=== PATIENT | male | born 1945 | race Caucasian/White ===

== ENCOUNTER → 2019-11-07 | Outpatient (CLI) | payer MEDICARE, BC ==
[~2019-11-07] MED LIST: CITA10TA4 PO; CITA20TA6 PO; FINA5TAB4 PO; FLUT16SP24 NAS; FLUT1DIS IH; LEVA15HF4 INH; LEVO125T5 PO; MIRT30TA4 PO; REGADENOSON 0.4 MG/5 ML SYRINGE ONE; RIVA20TA PO; TAMS0.4C2 PO; VALS320T2 PO
== END | disposition home or self-care (01) ==
LOC: CFH 06:42
PROVIDERS: ATTEND Internal Medicine Cardiovascular Disease
DX: R06.02 Shortness of breath (principal); R07.89 Other chest pain
CPT/HCPCS: 78452; 93017; 93306; A9502; J2785